=== PATIENT | female | born 2000 | race African-American/Black ===

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

== ENCOUNTER 2018-01-05 19:56 | Emergency (ER) | payer MEDICAID ==
[2018-01-05] MEDS ORDERED: IBUPROFEN 600 MG TAB PO ONE (20:06)
--- NOTE | 2018-01-05 20:25 | EDPHY ---
H & P Smoking Status: Never smoked Time Seen by Provider: 01/05/18 20:10 HPI/ROS: Chief complaint. Fever HPI. 17-year-old female presents emergency department with fever for 1 day. Some nausea. Some congestion and slight sore throat. Nonproductive cough. Achy. Tylenol prior to arrival with inadequate relief for fever. No abdominal pain. No urinary symptoms. No rash. No recent travel but probable sick contacts at school. ROS Constitutional. Fever and chills Eyes. no problems with vision ENT. Sore throat and congestion Cardiovascular. no chest pain Respiratory. Cough but no shortness of breath Abdominal. No abdominal pain but nausea . no problems urinating MS. no calf pain/swelling, no neck/back pain, no joint pain Skin. no rash Lymph. no swollen glands Neuro. no headache, no dizziness, no difficulty walking or with speech (Graham Holden) Past Medical/Surgical History: Lipoma and tonsillectomy (Graham Holden) Social History: Single, nonsmoker, no alcohol (Graham Holden) Physical Exam: General Appearance: Alert well-developed female moderate distress vital signs show temp 39.5 degrees with heart rate 142 Eyes: Pupils equal and round no pallor or injection. ENT, tympanic membranes normal. Pharynx slightly injected without exudate. Mucous membranes are dry Respiratory: There are no retractions, lungs are clear to auscultation. Cardiovascular: Regular rate and rhythm. Gastrointestinal: Abdomen is soft and nontender, no masses, bowel sounds normal. Neurological: Awake and alert, sensory and motor exams grossly normal. Skin: Warm and dry, no rashes. Musculoskeletal: Neck is supple nontender. Extremities symmetrical, full range of motion. Psychiatric: Patient is oriented X 3, there is no agitation. (Graham Holden) Constitutional: Initial Vital Signs Temperature (C) 39.5 C H 01/05/18 19:59 Heart Rate 142 H 01/05/18 19:59 Respiratory Rate 18 01/05/18 19:59 Blood Pressure 114/76 01/05/18 19:59 O2 Sat (%) 99 01/05/18 19:59 O2 Delivery Mode Room Air Allergies/Adverse Reactions: No Known Allergies Allergy (Verified 01/05/18 19:58) Home Medications: Medication Instructions Recorded NK [No Known Home Meds] 01/05/18 Medical Decision Making - Diagnostics Imaging Results: Imaging Impressions Chest X-Ray 01/05/18 20:56 Impression: 1. No acute pulmonary disease. 2. No pneumothorax. Chest x-ray interpreted by me is negative for pneumonia (Graham Holden) Procedures: Flu swab is negative IV normal saline with target of 2 L. Zofran for nausea Tylenol and ibuprofen for fever (Graham Holden) ED Course/Re-evaluation: Recheck at 9:45 p.m.. Patient feeling better. Temperature is down. She and I discussed laboratory and imaging study results. She still has not urinated and we are waiting urine to make sure there is or is not urinary tract infection. Recheck 10:30 p.m.. Patient has had 2 L of fluids. She feels that she can urinate now. She tells me she feels so much better (Graham Holden) 11:12 p.m.- Patient's UA has resulted and is within normal limits. There is no sign of urinary tract infection. I have discussed this with her and she will be discharged home at this point. (Janina Warren) Differential Diagnosis: I considered influenza, viral syndrome, pneumonia, urinary tract infection. ( Graham Holden) - Data Points Laboratory Results: Laboratory Results 01/05/18 21:11 01/05/18 21:11 01/05/18 01/05/18 01/05/18 22:45 21:11 21:11 WBC 8.01 10^3/uL 10^3/uL (3.80-9.50) RBC 4.41 10^6/uL 10^6/uL (4.18-5.33) Hgb 12.1 g/dL L g/dL (12.6-16.3) Hct 36.6 % L % (38.0-47.0) MCV 83.0 fL fL (81.5-99.8) MCH 27.4 pg L pg (27.9-34.1) MCHC 33.1 g/dL g/dL (32.4-36.7) RDW 13.8 % % (11.5-15.2) Plt Count 261 10^3/uL 10^3/uL (150-400) MPV 9.5 fL fL (8.7-11.7) Neut % (Auto) 73.5 % % (39.3-74.2) Lymph % (Auto) 15.1 % % (15.0-45.0) [place] % (Auto) 11.0 % % (4.5-13.0) Eos % (Auto) 0.0 % L % (0.6-7.6) Baso % (Auto) 0.2 % L % (0.3-1.7) Nucleat RBC Rel Count 0.0 % % (0.0-0.2) Absolute Neuts (auto) 5.88 10^3/uL 10^3/uL (1.70-6.50) Absolute Lymphs (auto) 1.21 10^3/uL 10^3/uL (1.00-3.00) Absolute Monos (auto) 0.88 10^3/uL H 10^3/uL (0.30-0.80) Absolute Eos (auto) 0.00 10^3/uL L 10^3/uL (0.03-0.40) Absolute Basos (auto) 0.02 10^3/uL 10^3/uL (0.02-0.10) Absolute Nucleated RBC 0.00 10^3/uL 10^3/uL (0-0.01) Immature Gran % 0.2 % % (0.0-1.1) Immature Gran # 0.02 10^3/uL 10^3/uL (0.00-0.10) Sodium 138 mEq/L mEq/L (135-145) Potassium 3.9 mEq/L mEq/L (3.5-5.2) Chloride 104 mEq/L mEq/L (97-110) Carbon Dioxide 21 mEq/l L mEq/l (22-31) Anion Gap 13 mEq/L mEq/L (8-16) BUN 16 mg/dL mg/dL (7-23) Creatinine 0.7 mg/dL mg/dL (0.6-1.0) Estimated GFR > 60 Glucose 94 mg/dL mg/dL (70-100) Calcium 8.9 mg/dL mg/dL (8.5-10.4) Urine Color YELLOW Urine Appearance CLEAR Urine pH 6.0 (5.0-7.5) Ur Specific [place] 1.020 (1.002-1.030) Urine Protein NEGATIVE (NEGATIVE) Urine Ketones NEGATIVE (NEGATIVE) Urine Blood NEGATIVE (NEGATIVE) Urine Nitrate NEGATIVE (NEGATIVE) Urine Bilirubin NEGATIVE (NEGATIVE) Urine Urobilinogen NEGATIVE EU EU (0.2-1.0) Ur Leukocyte Esterase NEGATIVE (NEGATIVE) Urine RBC 1-3 /hpf /hpf (0-3) Urine WBC 1-3 /hpf /hpf (0-3) Ur Epithelial Cells TRACE /lpf /lpf (NONE-1+) Urine Mucus 1+ /lpf /lpf (NONE-1+) Urine Glucose NEGATIVE (NEGATIVE) Nasal Influenza A PCR Nasal Influenza B PCR RSV (PCR) 01/05/18 20:00 WBC RBC Hgb Hct MCV MCH MCHC RDW Plt Count MPV Neut % (Auto) Lymph % (Auto) [place] % (Auto) Eos % (Auto) Baso % (Auto) Nucleat RBC Rel Count Absolute Neuts (auto) Absolute Lymphs (auto) Absolute Monos (auto) Absolute Eos (auto) Absolute Basos (auto) Absolute Nucleated RBC Immature Gran % Immature Gran # Sodium Potassium Chloride Carbon Dioxide Anion Gap BUN Creatinine Estimated GFR Glucose Calcium Urine Color Urine Appearance Urine pH Ur Specific [place] Urine Protein Urine Ketones Urine Blood Urine Nitrate Urine Bilirubin Urine Urobilinogen Ur Leukocyte Esterase Urine RBC Urine WBC Ur Epithelial Cells Urine Mucus Urine Glucose Nasal Influenza A PCR NEGATIVE FOR FLU A (NEGATIVE) Nasal Influenza B PCR NEGATIVE FOR FLU B (NEGATIVE) RSV (PCR) NEGATIVE FOR RSV (NEGATIVE) Medications Given: Discontinued Medications Acetaminophen (Tylenol) 650 mg PO EDNOW ONE Stop: 01/05/18 20:55 Last Admin: 01/05/18 21:24 Dose: 650 mg Sodium Chloride (Ns) 1,000 mls @ 0 mls/hr IV EDNOW ONE; Wide Open PRN Reason: Protocol Stop: 01/05/18 20:56 Last Admin: 01/05/18 21:09 Dose: 1,000 mls Sodium Chloride (Ns) 1,000 mls @ 0 mls/hr IV EDNOW ONE; Wide Open PRN Reason: Protocol Stop: 01/05/18 20:56 Last Admin: 01/05/18 21:08 Dose: 1,000 mls Ibuprofen (Motrin) 600 mg PO EDNOW ONE Stop: 01/05/18 20:07 Last Admin: 01/05/18 20:24 Dose: 600 mg Ondansetron HCl (Zofran) 4 mg IVP EDNOW ONE Stop: 01/05/18 21:06 Last Admin: 01/05/18 21:21 Dose: 4 mg Departure - Departure Disposition: Home, Routine, Self-Care Clinical Impression: Viral syndrome Condition: Good Instructions: Fever in Adults (ED) Additional Instructions: Tylenol 1000 mg every 4-6 hours, ibuprofen 600 mg every 6 hr for fever. Drink plenty of fluids and stay hydrated. Return for worsening symptoms. Recheck in 2 days if not improved Referrals: [facility] [Other] - As per Instructions [facility] [Clinic] - 2-3 days, if not improved Stand Alone Forms: School Excuse
[2018-01-05] MEDS ORDERED: ACETAMINOPHEN 325 MG TAB PO ONE (20:54)
[2018-01-05] MEDS ORDERED: NS 1,000 ML IV ONE ×2 (20:55)
[2018-01-05] MEDS ORDERED: ONDANSETRON 4 MG/2 ML VIAL IVP ONE (21:05)
[2018-01-05 21:19] LABS: PLATELET COUNT 261 10^3/uL (150-400)
[2018-01-05 23:24] VITALS: BP 98/58; PULSE 98; RESP 16; TEMP 98.2; O2SAT 99
== END 2018-01-05 23:23 | disposition home or self-care (01) ==
DX: B34.9 Viral infection, unspecified (principal); E86.9 Volume depletion, unspecified
CPT/HCPCS: 96374; J2405

== ENCOUNTER 2018-07-04 06:08 | Emergency (ER) | payer MEDICAID ==
[2018-07-04] MEDS ORDERED: NS 1,000 ML IV ONE (06:13)
[2018-07-04] MEDS ORDERED: ONDANSETRON 4 MG/2 ML VIAL IVP ONE (06:13)
[2018-07-04] MEDS ORDERED: FAMOTIDINE 20 MG/2 ML SDV IVP ONE (06:14)
--- NOTE | 2018-07-04 06:20 | EDPHY ---
H & P Stated Complaint: vomiting and diarrhea bright red blood in it since yesterday with fever Source: Patient - Personal History LMP (Females 10-55): 15-21 Days Ago Current Tetanus/Diphtheria Vaccine: Yes Current Tetanus Diphtheria and Acellular Pertussis (TDAP): Yes - Medical/Surgical History Hx Asthma: No Hx Chronic Respiratory Disease: No Hx Diabetes: No Hx Cardiac Disease: No Hx Renal Disease: No Hx Cirrhosis: No Hx Alcoholism: No Hx HIV/AIDS: No Hx Splenectomy or Spleen Trauma: No Other PMH: LIPOMA ON NECK, TONSILS - Social History Smoking Status: Never smoked <Alfredo Dueñas - Last Filed: 07/04/18 06:36> <Rico Cuenca - Last Filed: 07/04/18 08:27> Time Seen by Provider: 07/04/18 06:18 HPI/ROS: HPI CHIEF COMPLAINT: Nausea, vomiting, possible blood in stool. HISTORY OF PRESENT ILLNESS: 18-year-old female, she is otherwise healthy denies having significant medical history except for hives, presents emergency room stating that recently she has been sick with an upper respiratory tract infection. However last night she had 4 episodes of nausea vomiting and noticed some streaks of red in her vomit. This then cleared and had multiple episodes of vomiting without any blood in it. Additionally she reports she had a bowel movement noticed that was read. Denies black tarry stool. Denies chest pain or abdominal pain or shortness of breath. States she is unsure if this was blood. She did eat lasagna last night. Past Medical History: Denies medical history except for hives Past Surgical History: Denies surgical history Social History: Denies drugs alcohol tobacco Family History: Noncontributory ROS REVIEW OF SYSTEMS: 10 Systems were reviewed and negative with the exception of the elements mentioned in the history of present illness. Exam Constitutional he appears well nontoxic no acute distress, triage nursing summary reviewed, vital signs reviewed, awake/alert. Eyes normal conjunctivae and sclera, EOMI, PERRLA. HENT normal inspection, atraumatic, moist mucus membranes, no epistaxis, neck supple/ no meningismus, no raccoon eyes. Respiratory clear to auscultation bilaterally, normal breath sounds, no respiratory distress, no wheezing. Cardiovascular rate normal, regular rhythm, no murmur, no edema, distal pulses normal. Gastrointestinal my right lower quadrant pain, no rebound, no guarding, normal bowel sounds, no distension, no pulsatile mass. Genitourinary no CVA tenderness. Musculoskeletal no midline vertebral tenderness, full range of motion, no calf swelling, no tenderness of extremities, no meningismus, good pulses, neurovascularly intact. Skin pink, warm, & dry, no rash, skin atraumatic. Neurologic awake, alert and oriented x 3, AAOx3, moves all 4 extremities equally, motor intact, sensory intact, CN II-XII intact, normal cerebellar, normal vision, normal speech. Psychiatric normal mood/affect. Heme/Lymph/Immune no lymphadenopathy. Differential Diagnosis: Includes but is not limited to in a particular order dehydration, electrolyte disturbance, gastritis, Roula-Dias tear, GI bleed, peptic ulcer disease, nausea vomiting from recent illness Medical Decision Making: Plan for this patient IV establishment IV fluid bolus , IV Zofran nausea, IV Pepcid for GI upset, blood work, stool sample. Re- evaluate, additionally patient has right lower quadrant pain. Will proceed with CT scan abdomen pelvis with IV contrast rule out acute appendicitis. Re-evaluation: (Alfredo Dueñas) Constitutional: Initial Vital Signs Temperature (C) 37.0 C 07/04/18 06:09 Heart Rate 103 H 07/04/18 06:09 Respiratory Rate 16 07/04/18 06:09 Blood Pressure 113/68 07/04/18 06:09 O2 Sat (%) 98 07/04/18 06:09 O2 Delivery Mode Room Air Allergies/Adverse Reactions: No Known Allergies Allergy (Verified 07/04/18 06:12) Home Medications: Medication Instructions Recorded NK [No Known Home Meds] 01/05/18 Medical Decision Making <Alfredo Dueñas - Last Filed: 07/04/18 06:36> - Diagnostics Imaging: Discussed imaging studies w/ echo vascular technologist Radiologist <Rico Cuenca - Last Filed: 07/04/18 08:27> - Diagnostics Imaging Results: Imaging Impressions Abdomen Ultrasound 07/04/18 07:32 Impression: Nondiagnostic assessment of the appendix. If there is further clinical concern regarding the patient's right lower quadrant pain, contrast-enhanced CT imaging could be considered. Findings were discussed with Rico Cuenca MD at 8:06, on 07/04/2018. ED Course/Re-evaluation: Ultrasound is inconclusive for appendicitis. Patient's abdomen is soft. She has minimal right-sided tenderness without any secondary signs of appendicitis. She states she is feeling better. She actually presented to the emergency department because she was concerned more about the blood in her emesis and not the abdominal pain. We discussed the limitations of the ultrasound and the option to obtain a CT scan of her abdomen. She understands the risks and the benefits involved. We have also discussed the option of going home and watchful waiting and returning for worsening symptoms. She says that she would prefer to not have the CT scan done at this time. She states she gave her mostly just for the vomiting and the blood in her emesis and not the pain. She says her pain is very minimal at this time. She will certainly return to the emergency department in 12-24 hours if her symptoms do not improved and sooner for pains worsens. Otherwise I will refer her to work for outpatient follow- up. No regards to her blood in her emesis I think this is likely secondary to a Roula-Dias tear. She has not had any further vomiting and she does not have any other findings suggestive of a large upper GI bleed. (Rico Cuenca) Other Provider: 0700 care is assumed by me from Dr. Dueñas. 18-year-old woman presenting with abdominal pain nausea and vomiting. Mild leukocytosis with no left shift. Laboratory evaluations are otherwise unremarkable. Patient have an ultrasound to evaluate for possible acute appendicitis. (Rico Cuenca) - Data Points Laboratory Results: Laboratory Results 07/04/18 06:35 07/04/18 06:35 07/04/18 07/04/18 07/04/18 07:28 07:00 06:45 WBC RBC Hgb Hct MCV MCH MCHC RDW Plt Count MPV Neut % (Auto) Lymph % (Auto) [place] % (Auto) Eos % (Auto) Baso % (Auto) Nucleat RBC Rel Count Absolute Neuts (auto) Absolute Lymphs (auto) Absolute Monos (auto) Absolute Eos (auto) Absolute Basos (auto) Absolute Nucleated RBC Immature Gran % Immature Gran # PT 14.9 SEC SEC (12.0-15.0) INR 1.15 (0.83-1.16) APTT 28.0 SEC SEC (23.0-38.0) Sodium Potassium Chloride Carbon Dioxide Anion Gap BUN Creatinine Estimated GFR Glucose Calcium Total Bilirubin Conjugated Bilirubin Unconjugated Bilirubin AST ALT Alkaline Phosphatase Total Protein Albumin Lipase Beta HCG, Qual NEGATIVE Urine Color YELLOW Urine Appearance CLEAR Urine pH 5.0 (5.0-7.5) Ur Specific [place] 1.015 (1.002-1.030) Urine Protein NEGATIVE (NEGATIVE) Urine Ketones NEGATIVE (NEGATIVE) Urine Blood NEGATIVE (NEGATIVE) Urine Nitrate NEGATIVE (NEGATIVE) Urine Bilirubin NEGATIVE (NEGATIVE) Urine Urobilinogen NEGATIVE EU EU (0.2-1.0) Ur Leukocyte Esterase NEGATIVE (NEGATIVE) Urine Glucose NEGATIVE (NEGATIVE) 07/04/18 07/04/18 06:35 06:35 WBC 12.04 10^3/uL H 10^3/uL (3.80-9.50) RBC 4.31 10^6/uL 10^6/uL (4.18-5.33) Hgb 12.2 g/dL L g/dL (12.6-16.3) Hct 36.7 % L % (38.0-47.0) MCV 85.2 fL fL (81.5-99.8) MCH 28.3 pg pg (27.9-34.1) MCHC 33.2 g/dL g/dL (32.4-36.7) RDW 13.4 % % (11.5-15.2) Plt Count 264 10^3/uL 10^3/uL (150-400) MPV 9.9 fL fL (8.7-11.7) Neut % (Auto) 72.1 % % (39.3-74.2) Lymph % (Auto) 19.4 % % (15.0-45.0) [place] % (Auto) 7.3 % % (4.5-13.0) Eos % (Auto) 0.7 % % (0.6-7.6) Baso % (Auto) 0.2 % L % (0.3-1.7) Nucleat RBC Rel Count 0.0 % % (0.0-0.2) Absolute Neuts (auto) 8.67 10^3/uL H 10^3/uL (1.70-6.50) Absolute Lymphs (auto) 2.33 10^3/uL 10^3/uL (1.00-3.00) Absolute Monos (auto) 0.88 10^3/uL H 10^3/uL (0.30-0.80) Absolute Eos (auto) 0.09 10^3/uL 10^3/uL (0.03-0.40) Absolute Basos (auto) 0.03 10^3/uL 10^3/uL (0.02-0.10) Absolute Nucleated RBC 0.00 10^3/uL 10^3/uL (0-0.01) Immature Gran % 0.3 % % (0.0-1.1) Immature Gran # 0.04 10^3/uL 10^3/uL (0.00-0.10) PT INR APTT Sodium 140 mEq/L mEq/L (135-145) Potassium 3.6 mEq/L mEq/L (3.3-5.0) Chloride 109 mEq/L mEq/L (97-110) Carbon Dioxide 19 mEq/l L mEq/l (22-31) Anion Gap 12 mEq/L mEq/L (8-16) BUN 21 mg/dL mg/dL (7-23) Creatinine 0.6 mg/dL mg/dL (0.6-1.0) Estimated GFR > 60 Glucose 113 mg/dL H mg/dL (70-100) Calcium 9.6 mg/dL mg/dL (8.5-10.4) Total Bilirubin 0.4 mg/dL mg/dL (0.1-1.4) Conjugated Bilirubin 0.2 mg/dL mg/dL (0.0-0.5) Unconjugated Bilirubin 0.2 mg/dL mg/dL (0.0-1.1) AST 20 IU/L IU/L (14-46) ALT 24 IU/L IU/L (9-52) Alkaline Phosphatase 68 IU/L IU/L (38-126) Total Protein 7.2 g/dL g/dL (6.3-8.2) Albumin 4.3 g/dL g/dL (3.5-5.0) Lipase 120 IU/L IU/L (23-300) Beta HCG, Qual Urine Color Urine Appearance Urine pH Ur Specific [place] Urine Protein Urine Ketones Urine Blood Urine Nitrate Urine Bilirubin Urine Urobilinogen Ur Leukocyte Esterase Urine Glucose Medications Given: Discontinued Medications Famotidine (Pepcid) 20 mg IVP EDNOW ONE Stop: 07/04/18 06:15 Last Admin: 07/04/18 06:32 Dose: 20 mg Sodium Chloride (Ns) 1,000 mls @ 0 mls/hr IV EDNOW ONE; Wide Open PRN Reason: Protocol Stop: 07/04/18 06:14 Last Admin: 07/04/18 06:32 Dose: 1,000 mls Ondansetron HCl (Zofran) 4 mg IVP EDNOW ONE Stop: 07/04/18 06:14 Last Admin: 07/04/18 06:32 Dose: 4 mg Departure <Alfredo Dueñas - Last Filed: 07/04/18 06:36> <Rico Cuenca - Last Filed: 07/04/18 08:27> - Departure Disposition: Home, Routine, Self-Care Clinical Impression: Vomiting Condition: Good Instructions: Acute Nausea and Vomiting (ED) Additional Instructions: 1. Return emergency room if you have worsening symptoms includes vomiting, fever , abdominal pain 2. Erick diet over the next 24-48 hours no spicy fatty greasy foods. Return to the emergency department in 12-24 hours if symptoms are not improving , return sooner for worsening pain. Referrals: [facility],. [Clinic] - As per Instructions
[2018-07-04 06:56] LABS: PLATELET COUNT 264 10^3/uL (150-400)
[2018-07-04 07:12] LABS: INR 1.15 (0.83-1.16); PROTIME(PATIENT) 14.9 SEC (12.0-15.0)
[2018-07-04] MEDS ORDERED: IOPAMIDOL (ISOVUE-300) 100 ML BTL ONE (07:12)
[2018-07-04 08:48] VITALS: BP 125/75
== END 2018-07-04 08:48 | disposition home or self-care (01) ==
DX: R11.11 Vomiting without nausea (principal); E86.9 Volume depletion, unspecified
CPT/HCPCS: 96374; J2405; Q9967

== ENCOUNTER 2018-07-14 21:14 | Emergency (ER) | payer MEDICAID ==
[2018-07-14] MEDS ORDERED: IBUPROFEN 600 MG TAB PO ONE (21:29)
[2018-07-14] MEDS ORDERED: OXYCODONE/APAP 5/325MG PREPACK#4 BTL TAKEHOME ONE (21:45)
[2018-07-14] MEDS ORDERED: OXYCODONE/APAP 5/325 TAB PO ONE (21:45)
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
[2018-07-14 22:28] VITALS: BP 111/81
== END 2018-07-14 22:40 | disposition home or self-care (01) ==
DX: S02.2XXA Fracture of nasal bones, initial encounter for closed fracture (principal); W50.0XXA Accidental hit or strike by another person, initial encounter; Y92.9 Unspecified place or not applicable

== ENCOUNTER 2018-09-20 00:41 | Emergency (ER) | payer MEDICAID ==
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
[2018-09-20 01:22] LABS: PLATELET COUNT 420 10^3/uL (150-400)
[2018-09-20 11:51] VITALS: BP 105/68
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
--- NOTE | 2018-09-20 12:36 | ASMTTCLDSP ---
TLC Discharge Disposition Disposition: Answers: Discharge If Answers: Yes DISCHARGED: Patient/family given suicide hotline info & SAMHSA brochure? Disposition Notes: Notes: Pt stated commitment or ability to keep self safe, denied thoughts of self harm or harm to others. Pt provided with [facility] literature. Pt was given local hotline information and SAMHSA brochure After an Attempt and encouraged to follow up with [facility]. Discharge Concerns/Recommendations: Notes: In consultation with [facility] ED physician, Maulik Floyd MD, Dr. Floyd concurred that pt does not appear to meet 27-65 criteria requiring psychiatric hospitalization as pt does not appear to be an imminent risk of harm to self/others/gravely disabled due to a mental illness condition. Dr. Floyd provided verbal order read back vacating M1 hold at 1135 hrs. Was patient given the Answers: Not applicable Inpatient Behavioral Health Prohibited Belongings List while in the ED? Psychiatrist vacating M1 Maulik Floyd MD Hold: Date and time M1 hold 09/20/2018 11:35 AM vacated (time format is hh:mm): Type of Hold: Answers: M1/72-hour Hold Hold initiated by: Answers: Police Date Signed: 09/20/2018 12:35 PM Electronically Signed By:Brad Hansen
== END 2018-09-20 11:48 | disposition home or self-care (01) ==
LOC: EDUNIT# → EEVIPCON 00:41
PROC: GZ11ZZZ Psychological Tests, Personality and Behavioral (ICD-10-PCS; principal; 2018-09-20)
DX: T14.91XA Suicide attempt, initial encounter (principal); X78.8XXA Intentional self-harm by other sharp object, initial encounter; Y92.512 Supermarket, store or market as the place of occurrence of the external cause; Y93.9 Activity, unspecified; Y99.9 Unspecified external cause status
CPT/HCPCS: 80305; G0480

== ENCOUNTER 2018-11-04 09:31 | Emergency (ER) | payer MEDICAID ==
[2018-11-04] MEDS ORDERED: ERYTHROMYCIN 0.5% 1 GM OPHT.OINT ONE (10:11)
--- NOTE | 2018-11-04 10:25 | EDPHY ---
H & P Stated Complaint: Bilat swollen eyes Time Seen by Provider: 11/04/18 09:51 HPI/ROS: CHIEF COMPLAINT: Bilateral eyelid swelling HISTORY OF PRESENT ILLNESS: 18-year-old female presents with bilateral eyelid swelling. She had eye lash extensions placed yesterday. She felt fine yesterday evening. She awoke with bilateral upper eyelid swelling and itchiness. No eye drainage, other rash or shortness of breath. No prior allergic reaction. 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, TONSILS - Social History Smoking Status: Never smoked - Physical Exam Exam: General Appearance: Alert, pleasant Eyes: Pupils equal and round, no conjunctival pallor or injection, bilateral upper eyelid swelling and faint erythema ENT, Mouth: Mucous membranes moist Neck: Normal inspection Respiratory: Lungs are clear to auscultation Cardiovascular: Regular rate and rhythm Neurological: A&O, nonfocal, normal gait Skin: Warm and dry, no rash Extremities: Normal inspection Psychiatric: Mood and affect normal Constitutional: Initial Vital Signs Temperature (C) 36.3 C 11/04/18 09:37 Heart Rate 98 11/04/18 09:37 Respiratory Rate 18 11/04/18 09:37 Blood Pressure 110/71 11/04/18 09:37 O2 Sat (%) 98 11/04/18 09:37 O2 Delivery Mode Room Air Allergies/Adverse Reactions: No Known Allergies Allergy (Verified 11/04/18 09:40) Home Medications: Medication Instructions Recorded Medication For Hives 07/14/18 predniSONE 40 mg PO DAILY #8 tab 11/04/18 Medical Decision Making ED Course/Re-evaluation: This patient presents with an allergic reaction to eyelash extenders or substances used in extension procedure. She already took Benadryl prior to arrival. Prednisone 40 mg orally given. She would like the eyelash extenders removed. Erythromycin eye ointment placed in attempt to dissolve the eyelash glue. f/u with provider. Warning signs discussed. Departure - Departure Disposition: Home, Routine, Self-Care Clinical Impression: Allergic reaction Condition: Good Instructions: General Allergic Reaction (ED) Additional Instructions: Take Claritin in the morning and Benadryl at night while the swelling persists. Take prednisone as prescribed. Return for worsening symptoms or any concerns. Referrals: Dot Finney MD [Medical Doctor] - As per Instructions Stand Alone Forms: School Excuse Prescriptions: predniSONE 40 mg PO DAILY #8 tab
[2018-11-04 10:51] VITALS: BP 137/66
== END 2018-11-04 10:49 | disposition home or self-care (01) ==
DX: T78.40XA Allergy, unspecified, initial encounter (principal)